=== PATIENT | male | born 1990 | race Caucasian/White ===

== ENCOUNTER → 2022-03-13 07:48 | Outpatient (BNVA) | payer OTHER, SELFPAY | PROVIDERS: Family Provider Internal Medicine; PCP Family Medicine; Visit Provider Family Medicine | DX: Z00.00 Encounter for general adult medical examination without abnormal findings (principal) | CPT/HCPCS: 80053; 80061 ==

== ENCOUNTER → 2023-03-11 08:39 | Outpatient (BNVA) | payer OTHER, SELFPAY | PROVIDERS: Family Provider Internal Medicine; PCP Family Medicine; Visit Provider Family Medicine | DX: Z00.00 Encounter for general adult medical examination without abnormal findings (principal); E34.9 Endocrine disorder, unspecified | CPT/HCPCS: 80061; 83001 ==

== ENCOUNTER → 2023-04-02 08:27 | Outpatient (BNVA) | payer OTHER, SELFPAY | PROVIDERS: Family Provider Internal Medicine; PCP Family Medicine; Visit Provider Family Medicine | DX: Z00.00 Encounter for general adult medical examination without abnormal findings (principal); R00.2 Palpitations; E34.9 Endocrine disorder, unspecified | CPT/HCPCS: 83001; 84403; 84439; 84443; 84481 ==

== ENCOUNTER 2023-04-23 07:50 | Outpatient (CLI) | payer OTHER, SELFPAY ==
[2023-04-23 08:49] LABS: Testosterone Total 172.9 ng/dL (249-836)
== END 2023-04-23 07:51 | disposition home or self-care (01) ==
LOC: LAB 07:52
PROVIDERS: PCP Family Medicine; Visit Provider Internal Medicine
DX: R79.89 Other specified abnormal findings of blood chemistry (principal)
CPT/HCPCS: 36415; 84403

== ENCOUNTER → 2023-12-07 16:09 | Outpatient (BNVA) | payer OTHER, SELFPAY | PROVIDERS: PCP Family Medicine; Visit Provider Family Medicine | DX: I10 Essential (primary) hypertension (principal); M25.571 Pain in right ankle and joints of right foot | CPT/HCPCS: 80053; 84550; 85025; 86140 ==